=== PATIENT | female | born 1940 | race Caucasian/White ===

== ENCOUNTER 2020-10-13 11:52 | Inpatient (IN) | payer MEDICARE ==
[~2020-10-13] VITALS: Ht 162.6 cm; Wt 71.5 kg
[~2020-10-13 11:52] MED LIST: OCCUVITE PO
[2020-10-13 13:23] VITALS: BP 170/92
[2020-10-13] MEDS ORDERED: ATOR10TA9 PO (13:44)
[2020-10-13] MEDS ORDERED: HYDR12.517 PO (13:44)
[2020-10-13] MEDS ORDERED: ASPI81TA45 PO (15:00)
[2020-10-13] MEDS ORDERED: LIDODERM 5% PATCH TD PRN (15:30)
[2020-10-13] MEDS ORDERED: POLYETHYLENE GLYCOL 17 GM PACKET PO PRN (15:30)
[2020-10-13] MEDS ORDERED: ALBUTEROL HFA 90 MCG/SPRAY INH PRN ×2 (15:30→16:00)
[2020-10-13] MEDS ORDERED: ONDANSETRON 2MG/ML, 2ML IVPush PRN (15:30)
[2020-10-13] MEDS ORDERED: MELATONIN 5 MG TABLET PO PRN (15:30)
[2020-10-13] MEDS ORDERED: hydrALAzine 20 MG/ML, 1ML IVPush PRN (15:30)
[2020-10-13] MEDS ORDERED: PROMETHAZINE 25 MG/ML, 1ML IM PRN (15:30)
[2020-10-13] MEDS ORDERED: DOCUSATE 100 MG CAPSULE PO PRN (15:30)
[2020-10-13] MEDS ORDERED: GUAIFENESIN/DM 200-20MG, 10ML UDC PO PRN (15:30)
[2020-10-13] MEDS ORDERED: MORPHINE SULFATE 4 MG/ML, 1ML ONE (15:34)
[2020-10-13] MEDS: morphine SULFATE 10 MG/ML, 1ML IVPush PRN (15:40)
[2020-10-13 15:41] VITALS: BP 138/83
[2020-10-13] MEDS: ENOXAPARIN 40 MG/0.4 ML SQ SCH (15:41)
[2020-10-13] MEDS ORDERED: NICOTINE 14MG/24 HR PATCH.TD24 ONE (15:44)
[2020-10-13] MEDS: NICOTINE 14MG/24 HR PATCH.TD24 TD SCH (15:45)
[2020-10-13] MEDS ORDERED: LORazepam 2 MG/ML, 1ML IVPush PRN (16:00)
[2020-10-13 16:24] LABS: TROPONIN I < 0.015 ng/mL (0.000-0.045)
[2020-10-13] MEDS: CHLORDIAZEPOXIDE 5 MG CAPSULE PO SCH ×2 (16:25→21:12)
[2020-10-13 17:28] LABS: CHOL/HDL RATIO 1.6; LDL/HDL RATIO 0.5 (0.5-3.0)
[2020-10-13 19:04] VITALS: BP 147/84
[2020-10-13] MEDS: CEFTRIAXONE PMX 1GM/50ML 50 ML IV SCH (21:12)
[2020-10-13 21:35] LABS: TROPONIN I < 0.015 ng/mL (0.000-0.045)
[2020-10-13 22:58] LABS: MICROSCOPIC AUTO
[2020-10-14 01:10] VITALS: BP 160/85
[2020-10-14 04:04] LABS: BASOPHILS % (AUTO) 1 % (0-1); EOSINOPHILS % (AUTO) 1 % (1-7); LYMPHOCYTES % (AUTO) 20 % (22-44); MEAN CORPUSCULAR HGB CONC 33.5 g/dL (32.4-35.8); MEAN PLATELET VOLUME 6.9 fL (7.4-10.4); MONOCYTES % (AUTO) 12 % (2-9); NEUTROPHILS % (AUTO) 67 % (42-75); PLATELET COUNT 606 x10^3/uL (130-400); RED CELL DISTRIBUTION WIDTH 16.8 % (9.6-15.2)
[2020-10-14 04:07] LABS: MD NO
[2020-10-14 04:12] LABS: ALANINE AMINOTRANSFERASE 12 U/L (12-78); ANION GAP 10 mmol/L (5-15); CALCIUM 8.4 mg/dL (8.5-10.1); CHLORIDE 103 mmol/L (98-107); CREATININE 0.55 mg/dL (0.55-1.02)
[2020-10-14 04:16] LABS: ALKALINE PHOSPHATASE 72 U/L (45-117); BILIRUBIN,TOTAL 0.5 mg/dL (0.2-1.0); TOTAL PROTEIN 6.3 g/dL (6.4-8.2); TROPONIN I < 0.015 ng/mL (0.000-0.045)
[2020-10-14 06:58] VITALS: BP 160/89
[2020-10-14] MEDS: CHLORDIAZEPOXIDE 5 MG CAPSULE PO SCH ×6 (07:09→20:29)
[2020-10-14] MEDS ORDERED: POTASSIUM CHLORIDE 20 MEQ PACKET PO ONE (08:00)
[2020-10-14] MEDS: SENNA/DOCUSATE TABLET PO SCH (09:40)
[2020-10-14] MEDS: morphine SULFATE 10 MG/ML, 1ML IVPush PRN (09:59)
[2020-10-14 12:28] VITALS: BP 142/85
[2020-10-14] MEDS: NICOTINE 14MG/24 HR PATCH.TD24 TD SCH (15:35)
[2020-10-14] MEDS: ENOXAPARIN 40 MG/0.4 ML SQ SCH (15:36)
[2020-10-14 18:21] VITALS: BP 149/84
[2020-10-14] MEDS: CEFTRIAXONE PMX 1GM/50ML 50 ML IV SCH (20:32)
[2020-10-15 02:27] VITALS: BP 185/107
[2020-10-15 03:25] VITALS: BP 150/88
[2020-10-15 07:17] VITALS: BP 160/89
[2020-10-15 07:26] LABS: MEAN CORPUSCULAR HEMOGLOBIN 28.9 pg (27.0-34.8); MEAN PLATELET VOLUME 7.1 fL (7.4-10.4); PLATELET COUNT 656 x10^3/uL (130-400); RED BLOOD COUNT 3.78 x10^6/uL (3.82-5.3); RED CELL DISTRIBUTION WIDTH 16.8 % (9.6-15.2)
[2020-10-15 07:31] LABS: MD YES
[2020-10-15 07:38] LABS: ALANINE AMINOTRANSFERASE 13 U/L (12-78); ALBUMIN 3.1 g/dL (3.4-5.0); ANION GAP 8 mmol/L (5-15); CHLORIDE 101 mmol/L (98-107); CREATININE 0.56 mg/dL (0.55-1.02)
[2020-10-15 07:41] LABS: ALKALINE PHOSPHATASE 73 U/L (45-117); BILIRUBIN,TOTAL 0.4 mg/dL (0.2-1.0); TOTAL PROTEIN 6.5 g/dL (6.4-8.2)
[2020-10-15] MEDS: SENNA/DOCUSATE TABLET PO SCH (07:47)
[2020-10-15] MEDS: CHLORDIAZEPOXIDE 5 MG CAPSULE PO SCH ×4 (07:47→21:16)
[2020-10-15 07:52] LABS: <PLATELET ESTIMATE> INCREASED; <PLT MORPHOLOGY> NORMAL PLT MORPH; ANISOCYTOSIS 1+; LYMPH#(MANUAL) 1.73 x10^3/uL (1-3.4); LYMPHS% (MANUAL) 23 % (22-44); MONOS#(MANUAL) 0.45 x10^3/uL (0.3-2.7); MONOS% (MANUAL) 6 % (2-9); SEG#(MANUAL) 5.33 x10^3/uL (1.8-6.8); SEGS% (MANUAL) 71 % (42-75)
[2020-10-15] MEDS ORDERED: POTASSIUM CHLORIDE 20 MEQ PACKET PO ONE (08:00)
[2020-10-15] MEDS: NICOTINE 14MG/24 HR PATCH.TD24 TD SCH (15:30)
[2020-10-15 15:39] VITALS: BP 146/84
[2020-10-15] MEDS: ENOXAPARIN 40 MG/0.4 ML SQ SCH (15:55)
[2020-10-15 18:57] VITALS: BP_SYST 118; BP_SYST 159; BP_DIAS 73; BP_DIAS 92
[2020-10-15] MEDS: CEFTRIAXONE PMX 1GM/50ML 50 ML IV SCH (21:16)
[2020-10-15] MEDS: HYDROcodone/APAP 5/325 TABLET PO PRN (21:27)
[2020-10-16 01:48] VITALS: BP 153/88
[2020-10-16 05:15] LABS: MEAN CORPUSCULAR HEMOGLOBIN 29.4 pg (27.0-34.8); MEAN CORPUSCULAR HGB CONC 33.2 g/dL (32.4-35.8); MEAN PLATELET VOLUME 7.1 fL (7.4-10.4); PLATELET COUNT 639 x10^3/uL (130-400); RED BLOOD COUNT 3.61 x10^6/uL (3.82-5.3); RED CELL DISTRIBUTION WIDTH 16.8 % (9.6-15.2)
[2020-10-16 05:25] LABS: ALANINE AMINOTRANSFERASE 12 U/L (12-78); ALBUMIN 2.7 g/dL (3.4-5.0); ANION GAP 7 mmol/L (5-15); CALCIUM 8.4 mg/dL (8.5-10.1); CHLORIDE 101 mmol/L (98-107)
[2020-10-16 05:28] LABS: ALKALINE PHOSPHATASE 66 U/L (45-117); BILIRUBIN,TOTAL 0.4 mg/dL (0.2-1.0); CREATININE 0.69 mg/dL (0.55-1.02)
[2020-10-16 05:48] LABS: MD YES
[2020-10-16 05:55] LABS: <PLATELET ESTIMATE> INCREASED; <PLT MORPHOLOGY> NORMAL PLT MORPH; ANISOCYTOSIS 1+; LYMPH#(MANUAL) 2.09 x10^3/uL (1-3.4); LYMPHS% (MANUAL) 36 % (22-44); MONOS#(MANUAL) 0.46 x10^3/uL (0.3-2.7); MONOS% (MANUAL) 8 % (2-9); SEG#(MANUAL) 3.25 x10^3/uL (1.8-6.8); SEGS% (MANUAL) 56 % (42-75)
[2020-10-16 05:57] LABS: POLYCHROMASIA 1+
[2020-10-16] MEDS: CHLORDIAZEPOXIDE 5 MG CAPSULE PO SCH ×3 (06:01→16:00)
[2020-10-16] MEDS: HYDROcodone/APAP 5/325 TABLET PO PRN (06:42)
[2020-10-16 07:19] VITALS: BP 135/83
[2020-10-16] MEDS: SENNA/DOCUSATE TABLET PO SCH (07:33)
[2020-10-16] MEDS ORDERED: MULT-449 PO (10:53)
[2020-10-16] MEDS ORDERED: CEPH-376 PO (10:53)
[2020-10-16] MEDS ORDERED: TRAM50TA2 PO ×2 (10:53→10:56)
[2020-10-16] MEDS ORDERED: POTASSIUM CHLORIDE 20 MEQ TAB.ER.PRT PO ONE (11:00)
[2020-10-16] MEDS ORDERED: POTA20PA31 PO (11:02)
[2020-10-16] MEDS ORDERED: MAGN400T26 PO (11:02)
[2020-10-16 12:41] VITALS: BP 146/95
[2020-10-16] MEDS: ENOXAPARIN 40 MG/0.4 ML SQ SCH (15:30)
[2020-10-16] MEDS: NICOTINE 14MG/24 HR PATCH.TD24 TD SCH (15:30)
== END 2020-10-16 16:47 | disposition home health service (06) | DRG 206 ==
LOC: 4WST 12:55
PROVIDERS: ADMIT Internal Medicine; ATTEND Internal Medicine
DX: S22.32XA Fracture of one rib, left side, initial encounter for closed fracture (principal); E44.0 Moderate protein-calorie malnutrition; N39.0 Urinary tract infection, site not specified; E87.1 Hypo-osmolality and hyponatremia; Z88.0 Allergy status to penicillin; K44.9 Diaphragmatic hernia without obstruction or gangrene; J44.9 Chronic obstructive pulmonary disease, unspecified; B96.20 Unspecified Escherichia coli [E. coli] as the cause of diseases classified elsewhere; D63.8 Anemia in other chronic diseases classified elsewhere; E87.6 Hypokalemia; I71.2 Thoracic aortic aneurysm, without rupture; R29.6 Repeated falls; Z86.79 Personal history of other diseases of the circulatory system; Z91.81 History of falling; W18.39XA Other fall on same level, initial encounter; Y93.89 Activity, other specified; Y92.89 Other specified places as the place of occurrence of the external cause; Y99.8 Other external cause status
CPT/HCPCS: 36415; 70450; 71045; 80053; 80061; 81001; 83735; 84100; 84443; 84484; 85025; 87077; 87086; 87186; 93308; 93321; 93325; G0378; J0696; J1650; J2270

== ENCOUNTER 2021-04-15 13:16 | Emergency (ER) | payer MEDICARE ==
[~2021-04-15] VITALS: Ht 157.5 cm; Wt 68.0 kg
[~2021-04-15 13:16] MED LIST changes: +ASPI81TA45 PO; +ATOR10TA9 PO; +CEPH-376 PO; +HYDR12.517 PO; +MAGN400T26 PO; +MULT-449 PO; +POTA20PA31 PO; +TRAM50TA2 PO
--- NOTE | 2021-04-15 13:17 | NUR ---
PATIENT WENT TO BED LAST NIGHT FINE, AND WOKE UP AND PATIENT WAS SLURRING WITH EXRESSIVE APHASIA. PATIENT HAS A HISTORY OF COPD
--- NOTE | 2021-04-15 13:26 | NUR ---
DAUGHTER REPORTS PATIENT DRINKS MYKE DAILY, AND SMOKES 4-5 CIGERETTES A DAY AND IN NN FOR SCOPE AND HAD HIATAL HERNIA. SCHEDULED ENDOSCOPY. OCTOBER FELL AND HAD FRACTURED RIBS.
[2021-04-15] MEDS ORDERED: SODIUM CHLORIDE FLUSH 10ML SYR IVF ONE (14:00)
--- NOTE | 2021-04-15 14:03 | NUR ---
PT AMBULATED TO BATHROOM WITH STANDBY ASSIST
[2021-04-15 14:39] LABS: MEAN CORPUSCULAR HEMOGLOBIN 26.8 pg (27.0-34.8); MEAN CORPUSCULAR HGB CONC 32.6 g/dL (32.4-35.8); MEAN PLATELET VOLUME 7.1 fL (7.4-10.4); PLATELET COUNT 662 x10^3/uL (130-400); RED BLOOD COUNT 4.17 x10^6/uL (3.82-5.3); RED CELL DISTRIBUTION WIDTH 17.5 % (9.6-15.2)
[2021-04-15 14:52] LABS: ANION GAP 9 mmol/L (5-15); CALCIUM 9.2 mg/dL (8.5-10.1); CHLORIDE 105 mmol/L (98-107)
[2021-04-15 14:59] LABS: ALANINE AMINOTRANSFERASE 18 U/L (12-78); ALKALINE PHOSPHATASE 79 U/L (45-117); BILIRUBIN,TOTAL 0.3 mg/dL (0.2-1.0); CREATININE 0.52 mg/dL (0.55-1.02); TOTAL PROTEIN 6.7 g/dL (6.4-8.2); TROPONIN I < 0.015 ng/mL (0.000-0.045)
--- NOTE | 2021-04-15 15:14 | NUR ---
ST CATH PERFORMED WITHOUT PROBLEM. SPECIMEN WALKED TO LAB.
[2021-04-15 15:28] LABS: MICROSCOPIC AUTO
[2021-04-15 15:56] LABS: BAND#(MANUAL) 0.06 x10^3/uL; BANDS%(MANUAL) 1 % (0-7); EOS#(MANUAL) 0.06 x10^3/uL (0.0-0.4); EOS% (MANUAL) 1 % (1-7); LYMPH#(MANUAL) 2.42 x10^3/uL (1-3.4); LYMPHS% (MANUAL) 44 % (22-44); MONOS#(MANUAL) 0.44 x10^3/uL (0.3-2.7); MONOS% (MANUAL) 8 % (2-9); SEG#(MANUAL) 2.53 x10^3/uL (1.8-6.8); SEGS% (MANUAL) 46 % (42-75)
[2021-04-15 15:57] LABS: <PLATELET ESTIMATE> INCREASED; <PLT MORPHOLOGY> NORMAL PLT MORPH; ANISOCYTOSIS 1+; OVALOCYTES 1+
[2021-04-15 18:00] VITALS: BP 167/82
== END 2021-04-15 18:31 | disposition home or self-care (01) ==
LOC: ED 14:00
DX: I66.19 Occlusion and stenosis of unspecified anterior cerebral artery (principal); N30.00 Acute cystitis without hematuria; I45.19 Other right bundle-branch block; J44.9 Chronic obstructive pulmonary disease, unspecified; F17.200 Nicotine dependence, unspecified, uncomplicated; M19.90 Unspecified osteoarthritis, unspecified site
CPT/HCPCS: 36415; 70450; 70551; 71045; 80053; 81001; 84484; 85025; 87077; 87086; 87186; 93005; 99285